=== PATIENT | female | born 1980 | race Caucasian/White ===

== ENCOUNTER 2020-12-27 09:42 | Outpatient (CLI) | payer BC | END 2020-12-27 09:43 | disposition home or self-care (01) | LOC: CSHULT 09:42 | PROVIDERS: ATTEND Otolaryngology Otolaryngic Allergy | DX: D49.7 Neoplasm of unspecified behavior of endocrine glands and other parts of nervous system (principal); E04.1 Nontoxic single thyroid nodule | CPT/HCPCS: 76536 ==